=== PATIENT | male | born 1985 | race Caucasian/White ===

== ENCOUNTER 2018-11-29 13:26 | Emergency (ER) | payer BC, OTHER ==
[~2018-11-29] VITALS: Ht 167.6 cm; Wt 99.8 kg
[2018-11-29] MEDS ORDERED: CEPH-507 PO (13:45)
[2018-11-29] MEDS ORDERED: LIDOCAINE 1% INJ 20 ML 20 ML VIAL INJ ONE (13:45)
--- NOTE | 2018-11-29 13:45 | ED Upper Extremity ---
General Chief Complaint: Laceration Stated Complaint: ARM LACERATION Source: patient Exam Limitations: no limitations History of Present Illness Date Seen by Provider: November 29, 2018 Time Seen by Provider: 13:40 Initial Comments To ER with laceration to the ulnar side of the left wrist/distal forearm from a rubber roller grinder at [facility] [employer] just prior to arrival. [facility] was on site, administered tetanus shot and referred him to the emergency room. He complains of some tingling inability to sense pressure to the fifth digit of the left hand but difficulty with other sensations to the fifth finger such as 2 point discrimination. The ulnar side of the ring finger and the radial side of the ring finger have normal sensation. He is able to fully flex and extend all fingers. Onset: just prior to arrival Severity: moderate Pain/Injury Location: left wrist Method of Injury: other (work related) Allergies and Home Medications Allergies Coded Allergies: codeine (Unverified Adverse Reaction, Severe, GETS VIOLENT, 12/21/13) Uncoded Allergies: PCN (Adverse Reaction, Severe, GETS VIOLENT, 12/21/13) Home Medications Cephalexin 500 Mg Capsule, 500 MG PO Q4H Prescribed by: MAXIMO YEPEZ on 11/29/18 1345 Patient Home Medication List Home Medication List Reviewed: Yes Review of Systems Constitutional: see HPI EENTM: see HPI Respiratory: no symptoms reported Cardiovascular: no symptoms reported Musculoskeletal: see HPI Skin: see HPI Psychiatric/Neurological: No Symptoms Reported Past Uyylich-Ubvuff-Pqpebd Hx Patient Social History Recent Foreign Travel: No Contact w/Someone Who Travel: No Immunizations Up To Date Tetanus Booster (TDap): Unknown Past Medical History Asthma Adverse Reaction/Blood Tranf: No Physical Exam Vital Signs Vital Signs - First Documented 11/29/18 13:33 Pulse 96 Resp 20 B/P (MAP) 138/83 (101) Pulse Ox 99 O2 Delivery Room Air Capillary Refill : Height, Weight, BMI Height: 5'5" Weight: 210lbs. oz. 95.204816ep; BMI Method:Stated General Appearance: WD/WN, no apparent distress HEENT: PERRL/EOMI, normal ENT inspection Respiratory: no respiratory distress, no accessory muscle use Elbow/Forearm: normal inspection, non-tender Wrist: Yes pain, Yes soft tissue tenderness Hand: Left Neurologic/Tendon: normal motor functions, normal tendon functions, sensory deficit (to the fifth digit only. No sensory deficit to the ulnar side of the ring finger or the radial side of the ring finger or any other finger. He maintains ability to sense pressure but not sharp sensation to the ring finger. Maintains normal motor functions with ability to flex and abduct and extend all fingers including the fifth digit. There is a 2 cm laceration over the ulnar side of the distal forearm which does appear to be contaminated.) Neurologic/Psychiatric: alert, normal mood/affect, oriented x 3 Skin: normal color, warm/dry Procedures/Interventions Wound Location: Upper Extremities Wound Length (cm): 2.5 Wound's Depth, Shape: linear, bone Wound Explored: contaminated Irrigated w/ Saline (ccs): 500 Anesthesia: 1% Lidocaine Volume Anesthetic (ccs): 4 Wound Debrided: minimal Staple Repair: Stapler 35W Number of Sutures: 5 Layer Closure?: 1 Number Deep Layer Sutures: 0 Progress Area anesthetized with 4 mL of 1% lidocaine without epinephrine. Wound then irrigated with chlorhexidine/saline solution totaling 500 mL using a 60 cc syringe with an 18-gauge IV catheter attached to the tip. The devitalized tissues on the edge of the laceration were debrided with a 10 blade scalpel and pickups. Wound then closed with 5 derrick so as to not close too tightly. Covered with antibiotic ointment, 4 x 4 then gauze roll. Placed in a cockup wrist splint with Velcro. Progress/Results/Core Measures Results/Orders My Orders Orders - MAXIMO YEPEZ APRN Wrist, Left, 3 Views Or More (11/29/18 13:39) Lidocaine 1% Inj 20 Ml (Xylocaine 1% Inj (11/29/18 13:45) Medications Given in ED Current Medications Medications Dose Ordered Sig/Janna Route Start Time Stop Time Status Last Admin Dose Admin Lidocaine HCl 20 ml ONCE ONCE INJ 11/29/18 13:45 11/29/18 13:46 DC 11/29/18 13:50 20 ML Vital Signs/I&O 11/29/18 13:33 Pulse 96 Resp 20 B/P (MAP) 138/83 (101) Pulse Ox 99 O2 Delivery Room Air Diagnostic Imaging Diagonstic Imaging: Xray Comments NAME: MARISSA HOUSE MED REC#: [id number] PT STATUS: REG ER : 1985 PHYSICIAN: MAXIMO YEPEZ APRN ADMIT DATE: 11/29/18/ER Draft Date of Exam:11/29/18 WRIST, LEFT, 3 VIEWS OR MORE Indication: Left wrist laceration. Three views of the left wrist show some soft tissue disruption and slight cortical dilation involving the distal ulna. This is consistent clinical history of a injury from an industrial rubber roller grinder. Impression: There is a compound incomplete fracture of the distal ulna Dictated on workstation # [id number] Dict: 11/29/18 1402 Trans: 11/29/18 1408 CVB [id number] Interpreted by: TAL MCLEOD MD Electronically signed by: Departure Communication (Admissions) Discussed the case with Dr. Jacobs who is on-call for orthopedics, he will follow-up with the patient this Thursday at the [facility], 12/01/18. Impression Primary Impression: Arm laceration Qualified Codes: S41.112A - Laceration without foreign body of left upper arm , initial encounter Additional Impression: Fracture of distal end of ulna Disposition: 01 HOME, SELF-CARE Condition: Stable Departure-Patient Inst. Decision time for Depature: 13:43 Referrals: EARNEST REDMAN MD (PCP/Family) Primary Care Physician SOTERO JACOBS DO Patient Instructions: Laceration Repair With Derrick (DC) Add. Discharge Instructions: 1. Take antibiotics as directed. Pain medication as directed. You may shower starting tonight. You can allow water to run over this but do not soak it in water such as a bathtub hot tub swimming pool or [place] until derrick are removed. Keep this covered with a bandage while at work. He may go back to work tomorrow. Wear the splint while at work. Return to the emergency room or occupational health to have the derrick removed in 2 weeks. You should follow- up with Dr. Jacobs this 12/01/18 here at the [facility]. All discharge instructions reviewed with patient and/or family. Voiced understanding. Scripts Hydrocodone Bit/Acetaminophen (Hydrocodone/Acetaminophen 5/325mg Tablet) 1 Tab Tab 1 EACH PO Q4-6HR PRN for PAIN-MODERATE MDD 10 for 3 Days, #20 TAB Prov: MAXIMO YEPEZ APRN 11/29/18 Cephalexin (Keflex) 500 Mg Capsule 500 MG PO Q4H, #28 CAP Prov: MAXIMO YEPEZ APRN 11/29/18 MAXIMO YEPEZ APRN November 29, 2018 13:45
--- NOTE | 2018-11-29 14:08 | Diagnostic Imaging Report ---
Indication: Left wrist laceration. Three views of the left wrist show some soft tissue disruption and slight cortical dilation involving the distal ulna. 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 Impression: There is a compound incomplete fracture of the distal ulna Dictated by: Dictated on workstation # [id number]
[2018-11-29] MEDS ORDERED: ACHD5005 PO (14:26)
[2018-11-29] MEDS ORDERED: ceFAZolin INJECTION 1,000 MG VIAL IM ONE (14:30)
[2018-11-29] MEDS ORDERED: WATER (STERILE) FOR INJECTION 10 ML ONE (14:31)
[2018-11-29 14:51] VITALS: BP 138/83
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
== END 2018-11-29 14:51 | disposition home or self-care (01) ==
LOC: EDUNIT# 13:26 → ER 13:27
DX: S52.692A Other fracture of lower end of left ulna, initial encounter for closed fracture (principal); S61.512A Laceration without foreign body of left wrist, initial encounter; J45.909 Unspecified asthma, uncomplicated; Z88.5 Allergy status to narcotic agent; Z88.0 Allergy status to penicillin; W31.89XA Contact with other specified machinery, initial encounter; Y92.59 Other trade areas as the place of occurrence of the external cause; Y99.0 Civilian activity done for income or pay
CPT/HCPCS: 73110

== ENCOUNTER 2018-12-13 15:35 | Emergency (ER) | payer OTHER ==
[~2018-12-13] VITALS: Ht 167.6 cm; Wt 99.8 kg
[~2018-12-13 15:35] MED LIST: ACHD5005 PO; CEPH-507 PO
[2018-12-13 15:40] VITALS: BP 149/90
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
== END 2018-12-13 15:47 | disposition home or self-care (01) ==
LOC: EDUNIT# 15:35 → ER 15:36
DX: S61.512D Laceration without foreign body of left wrist, subsequent encounter (principal); X58.XXXD Exposure to other specified factors, subsequent encounter

== ENCOUNTER → 2022-11-21 | Outpatient (CLI) | payer OTHER ==
--- NOTE | 2022-11-21 08:43 | Diagnostic Imaging Report ---
PROCEDURE: US Gallbladder. TECHNIQUE: Multiple real-time grayscale images were obtained over the right upper quadrant in various projections. INDICATION: Epigastric pain. The liver is enlarged at 23 cm. Liver shows increased echogenicity consistent with hepatic steatosis. No discrete liver mass is identified. There appears to be a probable stone in the region of the gallbladder neck. However, no gallbladder wall thickening is seen. Hepatic bile duct is slightly prominent 9 mm. No definite common duct stone is seen. There is also questionable minimal intrahepatic ductal dilatation. Pancreas and aorta were secured by bowel gas. IVC is patent. Right kidney is without calculi or hydronephrosis. There is no ascites. IMPRESSION: 1. Hepatomegaly and hepatic steatosis. 2. Cholelithiasis without evidence of acute cholecystitis. The intrahepatic antibiotics do appear to be mildly prominent however. No other abnormalities are seen. Dictated by: Dictated on workstation # [id number]
== END ==
LOC: RAD 07:36
PROVIDERS: ATTEND Surgery
DX: K76.0 Fatty (change of) liver, not elsewhere classified (principal); K80.20 Calculus of gallbladder without cholecystitis without obstruction; R16.0 Hepatomegaly, not elsewhere classified
CPT/HCPCS: 76705

== ENCOUNTER 2022-11-26 05:50 | Outpatient (CLI) | payer OTHER ==
[~2022-11-26] VITALS: Ht 167.6 cm; Wt 115.9 kg
[2022-11-28] MEDS ORDERED: ATOR40TA70 PO (15:33)
[2022-11-28] MEDS ORDERED: BUSP15TA60 PO (15:33)
[2022-11-28] MEDS ORDERED: PANT40TA52 PO (15:33)
[2022-11-28] MEDS ORDERED: IBUP-1779 PO (15:33)
[2022-11-28] MEDS ORDERED: CITA20TA9 PO (15:33)
== END 2022-11-28 15:42 | disposition home or self-care (01) ==
LOC: PREOP 05:50
PROVIDERS: ATTEND Surgery
DX: Z01.818 Encounter for other preprocedural examination (principal)

== ENCOUNTER 2022-12-08 05:34 | Outpatient (CLI) | payer OTHER ==
[~2022-12-08] VITALS: Ht 167.6 cm; Wt 115.7 kg
[~2022-12-08 05:34] MED LIST changes: +ATOR40TA70 PO; +BUSP15TA60 PO; +CITA20TA9 PO; +IBUP-1779 PO; +PANT40TA52 PO
== END 2022-12-08 10:31 | disposition home or self-care (01) ==
LOC: PREOP 05:34
PROVIDERS: ATTEND Surgery
DX: Z01.818 Encounter for other preprocedural examination (principal)

== ENCOUNTER 2022-12-10 06:54 | Day surgery (SDC) | payer OTHER ==
[~2022-12-10] VITALS: Ht 167.6 cm; Wt 115.7 kg
[2022-12-10] VITALS (10 sets, daily range): BP systolic 106–134; BP diastolic 61–87
[2022-12-10] MEDS ORDERED: BUP/EPI 0.5% 1:200,000 (SENSORCAINE) 30 ML VIAL ONE (07:54)
[2022-12-10] MEDS ORDERED: CLINDAMYCIN 600 MG/50 ML IVPB 50 ML IV ONE (08:00)
[2022-12-10] MEDS: LACTATED RINGERS 1,000 ML IV PRN ×2 (08:01→10:13)
[2022-12-10] MEDS ORDERED: MIDAZOLAM 2 MG/2 ML (VERSED) VIAL ONE (08:12)
[2022-12-10] MEDS ORDERED: fentaNYL INJ 100 MCG/2 ML AMP ONE ×2 (08:12→10:09)
[2022-12-10] MEDS ORDERED: ceFAZolin INJECTION 2,000 MG ONE (09:15)
[2022-12-10] MEDS ORDERED: NS (IVPB) 50 ML ONE (09:15)
--- NOTE | 2022-12-10 09:19 | Progress Note-Pre Operative ---
Pre-Operative Progress Note Date H&P Reviewed: December 10, 2022 Time H&P Reviewed: 09:18 History & Physical: H&P Reviewed, Patient Examed, No changes noted Pre-Operative Diagnosis: cholelithiasis MAGDA KAISER DO December 10, 2022 09:19
[2022-12-10] MEDS ORDERED: ceFAZolin INJECTION 2,000 MG in NS (IVPB) 50 ML IV ONE (09:30)
[2022-12-10] MEDS ORDERED: ROCURONIUM 50 MG/5 ML (ZEMURON) VIAL IV ONE (10:08)
[2022-12-10] MEDS ORDERED: LIDOCAINE PF 2% 5 ML (XYLOCAINE) VIAL ONE (10:08)
[2022-12-10] MEDS ORDERED: proPOfol 200 MG/20 ML (DIPRIVAN) VIAL IV ONE (10:08)
[2022-12-10] MEDS ORDERED: PHENYLEPHRINE 100 MCG/ML 10 ML (ANESTHESIA) SYR ONE (10:08)
[2022-12-10] MEDS ORDERED: ONDANSETRON 4 MG/2 ML (SDV) Z0FRAN ONE (10:08)
[2022-12-10] MEDS ORDERED: GLYCOPYRROLATE 0.2 MG/ML (ROBINUL) 2 ML VIAL ONE (10:08)
[2022-12-10] MEDS ORDERED: NEOSTIGMINE (BLOXIVERZ ) 1 MG/1ML 10 ML VIAL ONE (10:08)
[2022-12-10] MEDS ORDERED: SEVOFLURANE (ULTANE) 15 ML INHAL SOLN ONE (10:29)
--- NOTE | 2022-12-10 10:49 | Anesthesia-General Post-Op ---
General Patient Condition Mental Status/LOC: Same as Preop Cardiovascular: Satisfactory Nausea/Vomiting: Absent Respiratory: Satisfactory Pain: Controlled Complications: Absent Post Op Complications Complications None Follow Up Care/Instructions Patient Instructions None needed. Anesthesia/Patient Condition Patient Condition Patient is doing well, no complaints, stable vital signs, no apparent adverse anesthesia problems. No complications reported per nursing. STALIN MCCARTHY CRNA December 10, 2022 10:49
[2022-12-10] MEDS ORDERED: fentaNYL INJ 100 MCG/2 ML AMP IVP ONE (11:00)
[2022-12-10] MEDS ORDERED: ACHD5005 PO (11:24)
[2022-12-10] MEDS ORDERED: DOCU-143 PO (11:24)
--- NOTE | 2022-12-10 11:25 | Discharge Inst-Simple/Standard ---
Discharge Inst-Standard Discharge Medications New, Converted or Re-Newed RX: Transmitted to Pharmacy Patient Instructions/Follow Up Plan of Care/Instructions/FU: 2 weeks Steve Activity as Tolerated: No Discharge Diet: Regular Diet Other Inst to Patient Follow up Appt: Make appointment for 2 weeks. Instructions: No lifting greater than 10 pounds. No strenuous activity. May shower in 24 hours, no tub bath or soaking. Use incentive spirometer at home as directed. No Smoking Skin/Wound Care: You have special glue over incision, it will fall off on it's own. Symptoms to Report: Appetite Changes, Extremity Discoloration, Numbness/Tingling, Swelling Increased, Bleeding Excessive, Eyesight Changes, Pain Increased, Urine Color Change, Constipation(Persistent), Fever over 101 degree F, Pain/Pressure in chest, Urinating Difficulty, Cough Up/Vomit Blood, Heart Beat Irreg/Pounding, Pain/Pressure in jaw, Vaginal Bleeding Increase, Cramps in feet or legs, Lightheadedness, Pain/Pressure in shoulder, Diarrhea(Persistent), Memory Changes Suddenly, Questions/Concerns, Weight gain consecutive days, Dizziness/Fainting, Nausea/Vomiting, Shortness of Breath, Weight gain over 2 pounds. If eyes or skin turn yellow notify physician. If questions or concerns contact your physician Or seek help at emergency department. MAGDA KAISER DO December 10, 2022 11:25
--- NOTE | 2022-12-10 11:26 | Progress Note-Post Operative ---
Post-Operative Progess Note Surgeon (s)/Assembler Fluorescent Lights (s) Surgeon MAGDA KAISER DO Assembler Fluorescent Lights: Dr. Macias to assist in retraction dissection and closure. Pre-Operative Diagnosis cholelithiasis Post-Operative Diagnosis same Procedure & Operative Findings Date of Procedure 12/10/22 Procedure Performed/Findings PROCEDURE: Laparoscopic cholecystectomy with intraoperative cholangiogram. COMPLICATIONS: None. PROCEDURE: The patient was taken to the operating suite and was prepped and draped in sterile fashion. A surgical pause was performed. Just superior to the umbilicus, a 12 mm incision was made. Dissection was taken down to the fascia, which was then scored and grasped with a Enriqueta and the abdomen was then entered. A 0 Vicryl suture was placed in a [id number] fashion and a Ge trocar was placed and secured. Pneumoperitoneum was achieved. A 5mm trochar place in the subxyphoid and 2 in the right upper quadrant. The gallbladder was then grasped and elevated. Adhesions to the gallbladder present and dissected off with blunt and cautery dissection. The cystic duct, and cystic artery were then dissected out. Clip was placed on the distal portion of the cystic duct which was then partially transected. An arrow catheter was inserted into the duct. The cholangiogram was then performed. No filing defects and contrast made its way into the duodenum. Catheter removed. Clips were placed on proximal portion of the cystic duct and then the duct was then transected. Clips were placed along the proximal and distal portion of the cystic artery which was then transected. Hook cautery was used to dissect the gallbladder from the gallbladder fossa achieving hemostasis. The gallbladder was placed in an Endobag and removed through the 12 mm trocar site. The abdomen was then reinspected. Copious amounts of irrigation were used to irrigate the abdomen and there were no signs of active bleeding. Hemostasis had been achieved. The 12 mm fascial defect was then closed with 0 Vicryl suture that had been placed in a cdsigv-or-cqddl fashion. The abdomen was then desufflated, the trocars were removed. The abdomen was then washed and dried. The skin was then closed using 4-0 Monocryl in a subcuticular fashion. The abdomen was washed and dried and Skin Affix was place over incisions. Patient tolerated the procedure well without any complications and was taken to the recovery room in stable condition. Anesthesia Type general Estimated Blood Loss Estimated blood loss (mL): minimal Specimens/Packing Specimens Removed gallbladder MAGDA KAISER DO December 10, 2022 11:26
[2022-12-10] MEDS: ONDANSETRON 4 MG/2 ML (SDV) Z0FRAN IVP PRN ×3 (11:31→13:28)
--- NOTE | 2022-12-10 16:11 | Diagnostic Imaging Report ---
INDICATION: Intraoperative fluoroscopy during cholangiogram. COMPARISON: None available. IMPRESSION: Intraoperative sine fluoroscopic images show contrast opacifying the intrahepatic and extrahepatic bile ducts with spillage into the second portion of the duodenum. Mild narrowing of the distal common bile duct without filling defect. Air Kerma is 10.72 mGy. Please see procedure report for more details. Dictated by: Dictated on workstation # [id number]
== END 2022-12-10 12:30 | disposition home or self-care (01) ==
LOC: SDC 06:54
PROVIDERS: ATTEND Surgery
DX: K80.12 Calculus of gallbladder with acute and chronic cholecystitis without obstruction (principal); K82.8 Other specified diseases of gallbladder; E66.9 Obesity, unspecified; Z68.41 Body mass index [BMI] 40.0-44.9, adult; K21.9 Gastro-esophageal reflux disease without esophagitis; F17.210 Nicotine dependence, cigarettes, uncomplicated; Z79.899 Other long term (current) drug therapy; Z28.310 Unvaccinated for COVID-19
CPT/HCPCS: 76000; 87081